=== PATIENT | male | born 1955 | race Caucasian/White ===

== ENCOUNTER 2017-09-26 16:54 | Inpatient (IN) | payer MEDICARE, OTHER ==
[2017-09-27] MEDS: SODIUM CHLORIDE 0.9% 1,000 ML IV SCH ×2 (00:04→19:21)
[2017-09-27 03:35] VITALS: BMI 22.3
[2017-09-27 07:16] LABS: Glucose,Whole Blood 129 mg/dL (75-99)
[2017-09-27 07:37] LABS: Basophils % (A) 0 %; Eosinophils % (A) 0 %; HCT 42.2 % (39.0-53.0); HGB 13.2 gm/dL (13.0-17.5); Lymphocytes # (A) 1.3 k/uL (1.0-4.8); Lymphocytes % (A) 15 %; MCH 27.9 pg (25.0-35.0); MCHC 31.2 g/dL (31.0-37.0); MCV 89.4 fL (80.0-100.0); Mean Platelet Volume 8.5; Monocytes # (A) 0.4 k/uL (0-1.0); Monocytes % (A) 5 %; Neutrophils # (A) 6.6 k/uL (1.3-7.7); Neutrophils % (A) 78 %; Platelet Count 188 k/uL (150-450); RBC 4.72 m/uL (4.30-5.90); RDW 14.8 % (11.5-15.5); WBC 8.5 k/uL (3.8-10.6)
[2017-09-27] MEDS: INSULIN ASPART 100 UNIT/ML 1 ML 10 ML VIAL SQ SCH ×4 (07:59→21:36)
[2017-09-27 08:01] LABS: Anion Gap 13 mmol/L; Blood Urea Nitrogen 39 mg/dL (9-20); Calcium 9.5 mg/dL (8.4-10.2); Carbon Dioxide 26 mmol/L (22-30); Chloride 117 mmol/L (98-107); Glucose 95 mg/dL (74-99); Potassium 4.2 mmol/L (3.5-5.1); Sodium 156 mmol/L (137-145)
[2017-09-27] MEDS: TAMSULOSIN 0.4 MG CAP.ER.24H PO SCH ×2 (08:15→21:26)
[2017-09-27] MEDS: ACETAMINOPHEN TAB 500 MG TAB PO PRN (08:15)
[2017-09-27] MEDS: FINASTERIDE 5 MG TAB PO SCH (08:16)
[2017-09-27] MEDS: amLODIPine 5 MG TAB PO SCH (08:16)
[2017-09-27] MEDS: HALOPERIDOL 5 MG TAB PO SCH ×2 (08:16→17:15)
[2017-09-27] MEDS: DIVALPROEX SPRINKLE 125 MG CAP.SPRINK PO SCH ×4 (08:16→22:46)
[2017-09-27] MEDS: GABAPENTIN 100 MG CAP PO SCH ×3 (08:16→21:25)
[2017-09-27] MEDS: FAMOTIDINE 20 MG TAB PO SCH ×2 (08:16→21:25)
[2017-09-27] MEDS: ASPIRIN 81 MG PO SCH (08:17)
[2017-09-27] MEDS ORDERED: cefTRIAXone IN SWFI 1,000 MG/10 ML SYRINGE IVP SCH (09:00)
[2017-09-27] MEDS ORDERED: LORazepam 1 MG TAB PO SCH (09:00)
[2017-09-27] MEDS ORDERED: OLANZapine 10 MG TAB PO SCH (09:00)
[2017-09-27] MEDS ORDERED: SODIUM CHLORIDE 0.45% 1,000 ML IV SCH (09:45)
--- NOTE | 2017-09-27 11:38 | P.HPIM ---
History of Present Illness Patient is a 61-year-old gentleman was transferred from [facility] after he was diagnosed with sepsis and was told patient has urinary tract infection although urine is not impressive for urinary tract infection source of infection is unknown and patient does have fever and no leukocytosis here appears to have had leukocytosis at [facility]. Patient is mentally disabled and is on chronic does everything he lives at a [facility], it appears to have Parkinson's and resting Parkinsonian tremor and patient appears to have some psychiatric issues because of which is because of which patient is on multiple antipsychotic medications which can actually cause except for withdrawal side effects and patient appears her dementia. Didn't provide me any history chest x-ray abdominal x-ray abdominal CAT scan no significant abnormality was appreciated. There is no skin breakdown source of infection is unknown. Review of Systems Unable to evaluate because of his clinical condition. Past Medical History Past Medical History: Coronary Artery Disease (CAD), Dementia, Hyperlipidemia, Hypertension, Renal Disease, Sleep Apnea/CPAP/BIPAP Additional Past Medical History / Comment(s): Parkinsons,BPH,Bipolar,Hernia History of Any Multi-Drug Resistant Organisms: None Reported Additional Past Surgical History / Comment(s): Right/Left Cataract surgery Past Anesthesia/Blood Transfusion Reactions: No Reported Reaction Past Psychological History: Anxiety, Bipolar, Panic Disorder Smoking Status: Former smoker Past Alcohol Use History: None Reported Past Drug Use History: None Reported - Past Family History Sister(s) Family Medical History: No Reported History Medications and Allergies Home Medications Medication Instructions Recorded Confirmed Type Ergocalciferol [Vitamin D2 50,000 unit PO Q7D 10/13/15 09/26/17 History (DRISDOL)] Isosorbide Mononitrate ER [Imdur] 30 mg PO DAILY@0900 10/13/15 09/26/17 History OLANZapine [ZyPREXA Zydis] 20 mg PO HS@209910/13/15 09/26/17 History Ranitidine HCl [Zantac] 150 mg PO BID@899,209910/13/15 09/26/17 History Tamsulosin HCl [Flomax] 0.4 mg PO BID@0900,209910/13/15 09/26/17 History Acetaminophen Tab [Tylenol Tab] 500 mg PO Q4H PRN 09/26/17 09/26/17 History Aspirin [Adult Low Dose Aspirin EC] 81 mg PO Q48H 09/26/17 09/26/17 History Ativan Solution 2mg/Ml 1 mg IM ONCE 09/26/17 09/26/17 History Bisacodyl [Dulcolax] 5 mg PO DAILY PRN 09/26/17 09/26/17 History Bisacodyl [Dulcolax] 10 mg RECTAL Q48H PRN 09/26/17 09/26/17 History Divalproex Sprinkle [Depakote 250 mg PO QID@09,13,17,09/26/17 09/26/17 History Sprinkle] Finasteride [Proscar] 5 mg PO DAILY@0900 09/26/17 09/26/17 History Gabapentin [Neurontin] 100 mg PO TID@0900,1300,2100 09/26/17 09/26/17 History Haloperidol [Haldol] 5 mg PO TID@0900,1700,2100 09/26/17 09/26/17 History House Supplement 120 ml PO BID@0900,1700 09/26/17 09/26/17 History LORazepam [Ativan] 1 mg PO TID@0900,1700,2100 09/26/17 09/26/17 History Loperamide [Imodium] 2 mg PO Q4H PRN 09/26/17 09/26/17 History OLANZapine [ZyPREXA] 10 mg PO DAILY@0900 09/26/17 09/26/17 History amLODIPine [Norvasc] 5 mg PO DAILY@0900 09/26/17 09/26/17 History clomiPRAMINE HCL 75 mg PO DAILY@2100 09/26/17 09/26/17 History Allergies Allergy/AdvReac Type Severity Reaction Status Date / Time No Known Allergies Allergy Verified 09/26/17 21:30 Physical Exam Vitals: Vital Signs Temp Pulse Resp BP Pulse Ox 09/27/17 10:19 145/88 09/27/17 08:00 101 H 18 09/27/17 07:00 101.3 F H 101 H 18 93 L 09/27/17 01:36 100.1 F H 94 17 160/95 98 09/27/17 01:21 99.9 F H 09/27/17 00:00 17 Intake and Output 0109/27/17 09/27/17 22:59 06:59 14:59 Intake Total 800 Balance 800 Intake: Intake, IV Titration 800 Amount Sodium Chloride 0.9% 1, 800 000 ml @ 100 mls/hr IV . Q10H [facility] Rx#:[id number] Other: Voiding Method Diaper Incontinent # Voids 2 1 Weight 70.579 kg PHYSICAL EXAMINATION: GENERAL: The patient is alert to assess his orientation patient has resting tremor HEENT: Pupils are round and equally reacting to light. EOMI. No scleral icterus. No conjunctival pallor. Normocephalic, atraumatic. No pharyngeal erythema. No thyromegaly. CARDIOVASCULAR: S1 and S2 present. No murmurs, rubs, or gallops. PULMONARY: Chest is clear to auscultation, no wheezing or crackles. ABDOMEN: Soft, nontender, nondistended, normoactive bowel sounds. No palpable organomegaly. MUSCULOSKELETAL: No joint swelling or deformity. EXTREMITIES: No cyanosis, clubbing, or pedal edema. NEUROLOGICAL: Unable to evaluate but patient does have resting tremor does not have any contractures does have atrophy of muscles of all the extremities patient is thin built L leg does not appear to have any new focal deficits SKIN: No rashes. Results CBC & Chem 7: 09/27/17 07:10 09/27/17 07:10 Labs: Abnormal Lab Results - Last 24 Hours (Table) 09/27/17 09/27/17 Range/Units 07:01 07:10 Sodium 156 H (137-145) mmol/L Chloride 117 H (98-107) mmol/L BUN 39 H (9-20) mg/dL Creatinine 1.36 H (0.66-1.25) mg/dL POC Glucose (mg/dL) 129 H (75-99) mg/dL Thrombosis Risk Factor Assmnt - Choose All That Apply Any of the Below Risk Factors Present?: No Other Risk Factors: Yes Each Risk Factor Represents 2 Points: Age 61-74 years Thrombosis Risk Factor Assessment Total Risk Factor Score: 2 Thrombosis Risk Factor Assessment Level: Low Risk Assessment and Plan Plan: -Sepsis source of infection is unknown: We will obtain influenza A and B testing and blood cultures urine cultures will be obtained will repeat the chest x-ray patient will be started on broad-spectrum antibiotics and infectious disease will be consulted. -Acute kidney injury: Probably lipidemia secondary to sepsis patient will be on IV fluids patient is hyponatremic because of which patient will need D5 water. -Chronic kidney disease stage II next and-possibility of Parkinson's unsure whether it's medication related or primary Parkinsonian disorder. Patient does have parkinsonian dementia. -Schizophrenia patient is on multiple medications that can cause except for side effects because of which I'm consulting psychiatrically 3 regarding their opinion about antipsychotic medications patient is on -Hyponatremia: Secondary to intravascular depletion dehydration. -Hyperlipidemia -Gastroesophageal reflux disease.
[2017-09-27 11:58] LABS: Glucose,Whole Blood 95 mg/dL (75-99)
[2017-09-27] MEDS: DEXTROSE 5%-0.2% NACL 1,000 ML IV SCH (13:36)
[2017-09-27 14:40] LABS: Hemoglobin A1C 5.5 % (4.0-6.0)
[2017-09-27 15:11] LABS: Amorphous Sediment,Urine Occasional /hpf; Appearance,Urine Cloudy (Clear); Bilirubin,Urine Negative (Negative); Blood,Urine Moderate (Negative); Color,Urine Yellow; Glucose,Urine (UA) Negative (Negative); Ketones,Urine Trace (Negative); Leukocyte Esterase,Urine Negative (Negative); Mucus,Urine Rare /hpf; Nitrite,Urine Negative (Negative); Protein,Urine 1+ (Negative); RBC,Urine 2 /hpf (0-5); Specific Gravity,Urine 1.011 (1.001-1.035); Squamous Epithelial Cell,Urine <1 /hpf (0-4); Urobilinogen,Urine <2.0 mg/dL (<2.0); WBC,Urine 2 /hpf (0-5)
[2017-09-27] MEDS: PIPERACILLIN-TAZOBACTAM 3.375 GM in DEXTROSE/WATER 1 50ML.BAG IVPB SCH (15:48)
--- NOTE | 2017-09-27 16:50 | CONS ---
CONSULTATION DATE OF SERVICE: 09/27/2017 REASON FOR CONSULTATION: Fever. HISTORY OF PRESENT ILLNESS: The patient is a 61-year-old male who has been transferred from [facility] after apparent diagnosis of possible sepsis. Apparently the patient presented to that facility with a fever and a question of possible urinary tract infection. Subsequently the patient was transferred to our facility for further evaluation of the same. The patient did have a fever of 99.9 this morning and 101.3 subsequently. The patient has been breathing comfortably say no when asked specifically for any chest pain or cough. No nausea, no vomiting or any abdominal pain, diarrhea; however, the patient himself is not a very good historian, so most of the information has been obtained from review of the chart back and talking to the nursing staff. REVIEW OF SYSTEMS: Review of systems could not be reliably obtained. The positive points have been mentioned in HPI. PAST MEDICAL HISTORY: 1. Coronary artery disease. 2. Dementia. 3. Hypertension. 4. Hyperlipidemia. 5. Renal insufficiency. 6. Sleep apnea. 7. Parkinson disease. 8. BPH. 9. Bipolar disorder. 10.Anxiety. PAST SURGICAL HISTORY: Bilateral cataract surgery. SOCIAL HISTORY: Remote history of smoking. No drinking or drug use. FAMILY HISTORY: No pertinent findings noticed. ALLERGIES: NO KNOWN DRUG ALLERGIES. MEDICATIONS: Current medications include: 1. Tylenol. 2. Norvasc. 3. Aspirin. 4. Depakote. 5. Pepcid. 6. Proscar. 7. Neurontin. 8. Haldol. 9. NovoLog. 10.Imdur. 11.Zyprexa. 12.Piperacillin tazobactam. 13.Flomax. PHYSICAL EXAMINATION: Blood pressure is 145/88 with a pulse of 101, temperature 101.3. He is 93% on room air. General description is a middle-aged male lying in bed in no distress. No tachypnea or accessory muscle of respiration use. HEENT examination shows no pallor or scleral icterus. Oral mucosa is dry. No pharyngeal erythema or thrush NECK: Trachea is central. No thyromegaly. LUNGS: Unlabored breathing. Some coarse breath sounds in the bases. No wheeze. HEART: S1, S2. Regular rate and rhythm. No murmur ABDOMEN: Soft. No tenderness. No guarding or rigidity. No organomegaly EXTREMITIES: No edema of feet. SKIN EXAMINATION: No rash or mass palpable. Neurologically patient is awake, alert, oriented x1. Mood and affect normal. LABS: Hemoglobin 13.2, white count 8.5 with a BUN of 39, creatinine 1.36. UA has been negative. Influenza A and B have been negative. Not clear if the patient did have a chest x-ray at that facility. DIAGNOSTIC IMPRESSION AND PLAN: Patient with fever. Patient was noticed to have some coughing and choking while he was drinking water. The question of pneumonitis is not entirely excluded, as the patient has no other clinical focus of infection. His influenza A and B were negative. UA is not significantly positive. No significant finding on abdominal examination. PLAN: 1. Will repeat a chest x-ray, PA and lateral, in the a.m. 2. Will keep the patient on Zosyn while waiting for the blood cultures to be finalized and workup to be completed. 3. Depending upon clinical response and the culture, will adjust the medication further if needed. Thank you for this consultation. Will follow this patient along with you. MMFREDERICKL / IJN: [id number] / RODERICK
--- NOTE | 2017-09-27 17:12 | XR ---
EXAMINATION TYPE: XR chest 1V DATE OF EXAM: 09/27/2017 COMPARISON: NONE HISTORY: Chest pain, rule out pneumonia TECHNIQUE: Single frontal view of the chest is obtained. FINDINGS: There is pleural effusion or pneumothorax seen. The cardiac silhouette size is within nor mal limits, heart size appearance is accentuated by rotation. Patient is rotated. Patchy basilar dens ity is present. Right hemidiaphragm is elevated. Lung volumes are low. The osseous structures are in tact. IMPRESSION: Basilar atelectasis, expiratory rotated exam, follow-up PA and lateral chest x-ray sugge sted. Elevated right hemidiaphragm.
[2017-09-27 17:42] LABS: Glucose,Whole Blood 119 mg/dL (75-99)
[2017-09-27] MEDS ORDERED: diphenhydrAMINE 50 MG/ML 1 ML VIAL IM STA (18:50)
[2017-09-27 19:55] LABS: Glucose,Whole Blood 121 mg/dL (75-99)
[2017-09-27] MEDS ORDERED: OLANZapine ODT 10 MG TAB PO SCH (21:00)
[2017-09-27 21:01] VITALS: RESP 16
--- NOTE | 2017-09-27 23:20 | CONS ---
CONSULTATION DATE OF SERVICE: 09/27/2017 PURPOSE FOR CONSULTATION: Evaluate for mental status change and multiple psychotropic medications. HISTORY OF PRESENT ILLNESS: The patient is a 61-year-old male who was admitted due to sepsis with possible infection. The origin is unknown. He has fever and leukocytosis. Dr. Villalobos documented that the patient is "mentally disabled," lives in a jail, has parkinsonism and is on a number of psychiatric medications, including antipsychotic medications. He also has a possible diagnosis of dementia. Psychotropic medications that the patient has been on at admission includes Depakote Sprinkles 250 mg 3 times a day, Haldol 5 mg 3 times a day. Ativan 1 mg 3 times a day, Zyprexa 10 mg in the morning. Zyprexa Zydis 20 mg at bedtime and clomipramine 75 mg at bedtime. He is also on Neurontin 100 mg 3 times a day. On admission, he was not continued on the Ativan, though his other psychotropic medications were continued. When I talked to the nurse in the afternoon, she indicated that he is not able to have any meaningful conversation. He would just move his lips and make sounds, though nothing that was meaningful. He has had some restlessness. He was having trouble with eating. He was seen in consultation by Dr. Rodrigue Hooper MD, who noted possible pneumonitis, though ruled out other possible sources of fever. When I saw the patient, he was half sitting up in bed. His gaze was fixed down toward his waist. He held a cup of pudding in his hands. He was moving his hands about and it was noteworthy that the pudding was spilled over his blanket. When I asked questions or talked to him from different directions, he did not change his gaze. His eyes stayed nearly shut, the best that I could tell. His lips moved in a very rapid fluttering fashion. He had stiffness in head and neck and stiffness in his arm. It was difficult to elicit any cogwheel rigidity. During the physical exam, he again made no apparent effort to respond to my presence there in any way and held his head in a rigid fashion. ASSESSMENT: It was felt the patient was having an acute dystonic reaction. He was administered Benadryl 100 mg IM. A followup telephone contact with the nurse about an hour later indicated that he was resting quietly in the evening time. The nurse stated that he actually has started talking and was able to talk appropriately about his concerns. He had complaint that he was having trouble urinating. It is noted that the patient was on a high dose of Haldol, which is the most likely contributor to his acute dystonic reaction. Haldol has been discontinued. He is also on a high dose of Zyprexa, which is typically indicated for serious psychosis. While Zyprexa has a relatively low incidence of extrapyramidal side effects, in combination with Haldol, it may be a significant contributor. As such, Zyprexa was discontinued also. It is noted that the patient is on the clomipramine in a moderate dose of 75 mg a day. Clomipramine does have anticholinergic affects and may add some benefit in terms of dystonia. He has had a fever with temperatures up to 101.3 this morning at 7:00 in the morning. It is noted on lab work that his white blood cell count was 8.5 in the normal range with a normal CBC. I would raise concern that he could have been in the midst of developing a neuroleptic malignant syndrome with the hallmarks usually being elevated temperature and elevated WBC. At this point, I will just encourage nursing to keep up with fluids. He may need to be catheterized. He may have some urinary hesitancy from the neurologic issues and his medications. I will discontinue Depakote, as he is likely to have a low blood level. A CBC, metabolic panel, thyroid profile and Depakote level are to be drawn in the morning. I will also order a CPK which typically can elevate very quickly, generally into the 1000s, in the early phase of neuroleptic malignant syndrome. A lesser concern would be that there could be elements of an anticholinergic delirium, though it is not clear that he is on substantial medicines with anticholinergic effects. I indicated to the nurse to call with any problems or concerns. I will continue to follow. MMODL / IJN: [id number] /
[2017-09-28] MEDS: DEXTROSE 5%-0.2% NACL 1,000 ML IV SCH ×2 (00:01→12:13)
[2017-09-28] MEDS: PIPERACILLIN-TAZOBACTAM 3.375 GM in DEXTROSE/WATER 1 50ML.BAG IVPB SCH ×3 (00:02→16:15)
[2017-09-28 07:26] LABS: Glucose,Whole Blood 116 mg/dL (75-99)
[2017-09-28] MEDS: FAMOTIDINE 20 MG TAB PO SCH ×2 (07:31→20:44)
[2017-09-28] MEDS: ISOSORBIDE MONONITRATE ER 30 MG TAB.ER.24H PO SCH (07:31)
[2017-09-28] MEDS: TAMSULOSIN 0.4 MG CAP.ER.24H PO SCH ×2 (07:31→20:44)
[2017-09-28] MEDS: FINASTERIDE 5 MG TAB PO SCH (07:32)
[2017-09-28] MEDS: amLODIPine 5 MG TAB PO SCH (07:32)
[2017-09-28] MEDS: DIVALPROEX SPRINKLE 125 MG CAP.SPRINK PO SCH ×4 (07:32→20:44)
[2017-09-28] MEDS: INSULIN ASPART 100 UNIT/ML 1 ML 10 ML VIAL SQ SCH ×4 (07:32→20:45)
[2017-09-28] MEDS: GABAPENTIN 100 MG CAP PO SCH ×3 (07:32→20:44)
[2017-09-28 07:38] LABS: HCT 40.7 % (39.0-53.0); HGB 12.8 gm/dL (13.0-17.5); MCHC 31.3 g/dL (31.0-37.0); MCV 89.5 fL (80.0-100.0); Mean Platelet Volume 8.5; Platelet Count 195 k/uL (150-450); RBC 4.55 m/uL (4.30-5.90); RDW 14.7 % (11.5-15.5); WBC 6.4 k/uL (3.8-10.6)
[2017-09-28 08:00] LABS: Anion Gap 9 mmol/L; Blood Urea Nitrogen 27 mg/dL (9-20); Calcium 8.6 mg/dL (8.4-10.2); Carbon Dioxide 27 mmol/L (22-30); Chloride 106 mmol/L (98-107); Glucose 108 mg/dL (74-99); Potassium 3.3 mmol/L (3.5-5.1); Sodium 142 mmol/L (137-145)
[2017-09-28 08:17] LABS: T4, Free (Free Thyroxine) 1.02 ng/dL (0.78-2.19)
[2017-09-28 08:27] LABS: Creatine Kinase 5678 U/L (55-170)
[2017-09-28 11:21] LABS: Glucose,Whole Blood 103 mg/dL (75-99)
[2017-09-28] MEDS ORDERED: Potassium Replacement Protocol 1 EACH MISC MISCELLANE PRN (12:44)
--- NOTE | 2017-09-28 12:56 | P.PN ---
Subjective Patient was admitted yesterday with altered mental status and sepsis unknown source of infection patient was on is on broad-spectrum antibiotics A at this point of time source of infection is still not evident blood cultures are still pending so far negative urine cultures and blood cultures and influenza testing is negative. Patient although is more responsive able to give me answers. Constitutional: Denied any fatigue denied any fever. Cardio vascular: denied any chest pain, palpitations Gastrointestinal denied any nausea vomiting Pulmonary: Denied any shortness of breath cough Neurologic denied any new focal deficits Objective - Vital Signs Vital signs: Vital Signs Temp 97.7 F 09/28/17 10:15 Pulse 77 09/28/17 07:48 Resp 16 09/28/17 07:48 BP 119/78 09/28/17 07:00 Pulse Ox 95 09/28/17 07:00 Intake & Output 09/27/17 09/28/17 09/28/17 18:59 06:59 18:59 Intake Total 700 160 Output Total 400 650 100 Balance 300 -650 60 Intake: Intake, IV Titration 700 Amount Dextrose 5%-0.2% NaCl 1, 700 000 ml @ 100 mls/hr IV . Q10H [facility] Rx#:[id number] Oral 160 Output: Urine 400 650 100 Other: Voiding Method Diaper Diaper Diaper Incontinent Incontinent Incontinent # Voids 1 - Exam PHYSICAL EXAMINATION: GENERAL: She is alert oriented 3 able to give me answers appears to be bit fatigued HEENT: Pupils are round and equally reacting to light. EOMI. No scleral icterus. No conjunctival pallor. Normocephalic, atraumatic. No pharyngeal erythema. No thyromegaly. CARDIOVASCULAR: S1 and S2 present. No murmurs, rubs, or gallops. PULMONARY: Chest is clear to auscultation, no wheezing or crackles. ABDOMEN: Soft, nontender, nondistended, normoactive bowel sounds. No palpable organomegaly. MUSCULOSKELETAL: No joint swelling or deformity. EXTREMITIES: No cyanosis, clubbing, or pedal edema. NEUROLOGICAL: She does have atrophy of muscles in all the 4 extremities SKIN: No rashes. - Labs CBC & Chem 7: 09/28/17 07:00 09/28/17 07:00 Labs: Abnormal Lab Results - Last 24 Hours (Table) 09/27/17 09/27/17 09/27/17 Range/Units 14:50 17:34 19:36 Hgb (13.0-17.5) gm/dL Potassium (3.5-5.1) mmol/L BUN (9-20) mg/dL Glucose (74-99) mg/dL POC Glucose (mg/dL) 119 H 121 H (75-99) mg/dL Creatine Kinase (55-170) U/L Urine Protein 1+ H (Negative) Urine Ketones Trace H (Negative) Urine Blood Moderate H (Negative) Amorphous Sediment Occasional H (None) /hpf Urine Mucus Rare H (None) /hpf 09/28/17 09/28/17 09/28/17 Range/Units 07:00 07:00 07:24 Hgb 12.8 L (13.0-17.5) gm/dL Potassium 3.3 L (3.5-5.1) mmol/L BUN 27 H (9-20) mg/dL Glucose 108 H (74-99) mg/dL POC Glucose (mg/dL) 116 H (75-99) mg/dL Creatine Kinase 5678 H (55-170) U/L Urine Protein (Negative) Urine Ketones (Negative) Urine Blood (Negative) Amorphous Sediment (None) /hpf Urine Mucus (None) /hpf 09/28/17 Range/Units 11:19 Hgb (13.0-17.5) gm/dL Potassium (3.5-5.1) mmol/L BUN (9-20) mg/dL Glucose (74-99) mg/dL POC Glucose (mg/dL) 103 H (75-99) mg/dL Creatine Kinase (55-170) U/L Urine Protein (Negative) Urine Ketones (Negative) Urine Blood (Negative) Amorphous Sediment (None) /hpf Urine Mucus (None) /hpf Microbiology - Last 24 Hours (Table) 09/27/17 14:50 Urine Culture - Preliminary Urine,Voided Assessment and Plan Plan: -Sepsis source of infection is unknown: influenza A and B testing and blood cultures urine cultures will be obtained are all negative source of infection is still not. We will await blood cultures will continue with broad-spectrum antibiotics -Acute kidney injury: Definitely improved patient does have prerenal azotemia. Patient will be switched to D5 half-normal saline today -Chronic kidney disease stage II next and-possibility of Parkinson's unsure whether it's medication related or primary Parkinsonian disorder. Patient does have parkinsonian dementia. -Schizophrenia patient is on multiple medications: Psychiatric evaluated the patient and continue present regimen. -Hyponatremia: Secondary to severe intravascular depletion improved now. -Hyperlipidemia -Gastroesophageal reflux disease.
[2017-09-28] MEDS: POTASSIUM CHLORIDE 10 MEQ in WATER FOR INJECTION 1 100ML.BAG IVPB SCH ×2 (13:28→13:34)
[2017-09-28] MEDS: DEXTROSE 5%-0.45% NACL 1,000 ML IV SCH (15:30)
[2017-09-28 17:13] LABS: Glucose,Whole Blood 108 mg/dL (75-99)
[2017-09-28 20:24] LABS: Glucose,Whole Blood 134 mg/dL (75-99)
--- NOTE | 2017-09-28 23:06 | CONS ---
CONSULTATION DATE OF CONSULTATION: 09/28/2017 PURPOSE FOR CONSULTATION: Evaluate for mental status change and multiple psychotropic medications. RECENT HISTORY: The patient has been doing fairly well. It is noted that he appeared to be having an acute dystonic reaction and that also there were risks for the patient developing neuroleptic malignant syndrome. He was on a high dose of both Haldol and Zyprexa, given his age and other mental health issues. He was unable to communicate when I saw him and he was not able to respond in any manner. He had rigidity in his muscles. The Haldol and Zyprexa were stopped and he was given Benadryl 100 mg IM. He showed gives a very good response to the anticholinergic medication. Within hours, he was much calmer. His muscles were relaxed. He was able to communicate. He was fairly oriented and aware of his situation. Today, he continues to improve. When I saw him, he could tell me that it was Saturday, September 28 or . He noted that his birthday was coming up in about 5 days. He still had some tremor noted in his lower jaw. Otherwise, he was doing quite well. At this point I would just continue his psychotropic medications the same. It is reasonable for him to continue Anafranil 75 mg at bedtime. Anafranil does have anticholinergic effects and can also help reduce any extrapyramidal side effects from Haldol and to a lesser extent Zyprexa. I discussed with the nurse that he may continue to have some issues of EPS over a number of weeks, though I would anticipate gradual progressive decline. He has made good progress at this point. I will continue to follow. MMODL / IJN: [id number] /
[2017-09-29] MEDS: PIPERACILLIN-TAZOBACTAM 3.375 GM in DEXTROSE/WATER 1 50ML.BAG IVPB SCH ×4 (00:21→22:58)
[2017-09-29] MEDS: DEXTROSE 5%-0.45% NACL 1,000 ML IV SCH ×3 (03:13→21:09)
[2017-09-29 07:15] LABS: Glucose,Whole Blood 101 mg/dL (75-99)
[2017-09-29] MEDS: INSULIN ASPART 100 UNIT/ML 1 ML 10 ML VIAL SQ SCH ×4 (07:15→20:25)
[2017-09-29 07:22] LABS: HCT 38.2 % (39.0-53.0); HGB 12.2 gm/dL (13.0-17.5); MCH 28.8 pg (25.0-35.0); MCHC 31.9 g/dL (31.0-37.0); MCV 90.1 fL (80.0-100.0); Mean Platelet Volume 8.8; Platelet Count 181 k/uL (150-450); RBC 4.24 m/uL (4.30-5.90); RDW 14.5 % (11.5-15.5); WBC 5.2 k/uL (3.8-10.6)
[2017-09-29 07:38] LABS: Anion Gap 8 mmol/L; Blood Urea Nitrogen 25 mg/dL (9-20); Calcium 8.6 mg/dL (8.4-10.2); Carbon Dioxide 24 mmol/L (22-30); Chloride 111 mmol/L (98-107); Glucose 103 mg/dL (74-99); Potassium 3.6 mmol/L (3.5-5.1); Sodium 143 mmol/L (137-145)
[2017-09-29] MEDS: amLODIPine 5 MG TAB PO SCH (08:32)
[2017-09-29] MEDS: ASPIRIN 81 MG PO SCH (08:32)
[2017-09-29] MEDS: DIVALPROEX SPRINKLE 125 MG CAP.SPRINK PO SCH ×4 (08:32→20:27)
[2017-09-29] MEDS: FAMOTIDINE 20 MG TAB PO SCH ×2 (08:33→20:27)
[2017-09-29] MEDS: TAMSULOSIN 0.4 MG CAP.ER.24H PO SCH ×2 (08:33→20:27)
[2017-09-29] MEDS: FINASTERIDE 5 MG TAB PO SCH (08:34)
[2017-09-29] MEDS: ISOSORBIDE MONONITRATE ER 30 MG TAB.ER.24H PO SCH (08:34)
[2017-09-29] MEDS: GABAPENTIN 100 MG CAP PO SCH ×3 (08:34→20:27)
[2017-09-29 11:59] LABS: Glucose,Whole Blood 107 mg/dL (75-99)
--- NOTE | 2017-09-29 11:59 | P.PN ---
Subjective Patient was admitted yesterday with altered mental status and sepsis unknown source of infection patient was on is on broad-spectrum antibiotics A at this point of time source of infection is still not evident blood cultures are still pending so far negative urine cultures and blood cultures and influenza testing is negative. Patient although is more responsive able to give me answers. 09/29/2017 Patient is doing significantly better is complaining of urination problems because of which will obtain a bladder scan and patient is requesting to go to shelter will get physical therapy evaluation and they get their opinion regarding that patient is quite weak probably not appropriate for shelter. Constitutional: Denied any fatigue denied any fever. Cardio vascular: denied any chest pain, palpitations Gastrointestinal denied any nausea vomiting Pulmonary: Denied any shortness of breath cough Neurologic denied any new focal deficits Objective - Vital Signs Vital signs: Vital Signs Temp 97.9 F 09/29/17 07:00 Pulse 85 09/29/17 08:00 Resp 16 09/29/17 08:00 BP 130/83 09/29/17 07:00 Pulse Ox 95 09/29/17 07:00 Intake & Output 09/28/17 09/29/17 09/29/17 18:59 06:59 18:59 Intake Total 160 240 Output Total 100 100 Balance 60 140 Weight 70.579 kg Intake: Oral 160 240 Output: Urine 100 100 Other: Voiding Method Diaper Toilet Toilet Incontinent Urinal Urinal # Voids 2 2 - Exam PHYSICAL EXAMINATION: GENERAL: She is alert oriented 3 able to give me answers appears to be bit fatigued HEENT: Pupils are round and equally reacting to light. EOMI. No scleral icterus. No conjunctival pallor. Normocephalic, atraumatic. No pharyngeal erythema. No thyromegaly. CARDIOVASCULAR: S1 and S2 present. No murmurs, rubs, or gallops. PULMONARY: Chest is clear to auscultation, no wheezing or crackles. ABDOMEN: Soft, nontender, nondistended, normoactive bowel sounds. No palpable organomegaly. MUSCULOSKELETAL: No joint swelling or deformity. EXTREMITIES: No cyanosis, clubbing, or pedal edema. NEUROLOGICAL: She does have atrophy of muscles in all the 4 extremities SKIN: No rashes. - Labs CBC & Chem 7: 09/29/17 06:28 09/29/17 06:28 Labs: Abnormal Lab Results - Last 24 Hours (Table) 09/28/17 09/28/17 09/29/17 Range/Units 17:10 20:22 06:28 RBC 4.24 L (4.30-5.90) m/uL Hgb 12.2 L (13.0-17.5) gm/dL Hct 38.2 L (39.0-53.0) % Chloride (98-107) mmol/L BUN (9-20) mg/dL Glucose (74-99) mg/dL POC Glucose (mg/dL) 108 H 134 H (75-99) mg/dL 09/29/17 09/29/17 Range/Units 06:28 07:13 RBC (4.30-5.90) m/uL Hgb (13.0-17.5) gm/dL Hct (39.0-53.0) % Chloride 111 H (98-107) mmol/L BUN 25 H (9-20) mg/dL Glucose 103 H (74-99) mg/dL POC Glucose (mg/dL) 101 H (75-99) mg/dL Microbiology - Last 24 Hours (Table) 09/27/17 14:50 Urine Culture - Final Urine,Voided 09/27/17 12:09 Blood Culture - Preliminary Blood No Growth after 24 hours Assessment and Plan Plan: -Sepsis source of infection is unknown: influenza A and B testing and blood cultures urine cultures will be obtained are all negative source of infection is still not. We will await blood cultures will continue with broad-spectrum antibiotics, all the workup for bacterial infections is negative -Acute kidney injury: Definitely improved patient does have prerenal azotemia. Continue with D5 half-normal saline -Chronic kidney disease stage II next and-possibility of Parkinson's unsure whether it's medication related or primary Parkinsonian disorder. Patient does have parkinsonian dementia. -Schizophrenia patient is on multiple medications: Psychiatric evaluated the patient and continue present regimen. -Hyponatremia: Secondary to severe intravascular depletion improved now. -Hyperlipidemia -Gastroesophageal reflux disease.
[2017-09-29] MEDS: ACETAMINOPHEN TAB 500 MG TAB PO PRN ×2 (12:40→21:09)
--- NOTE | 2017-09-29 17:13 | CONS ---
CONSULTATION PSYCHIATRIC CONSULTATION: DATE OF SERVICE: 09/29/2017. PURPOSE FOR CONSULTATION: Evaluate for mental status change and multiple psychotropic medications. RECENT HISTORY: Patient has been doing well. He had a quiet evening last night. He slept well today. He has been awake and alert. He is fully oriented. He has a good mood. He is looking forward to discharge. When I saw him today he gave me good eye contact. He smiled. He answered questions appropriately. He was calm. He was indicating much better outlook. ASSESSMENT: I will continue the current diagnosis and treatment plan. The primary issue for the patient appears to have been acute dystonic reaction secondary to high dose Haldol complicated by high dose Zyprexa. He is not on any antipsychotics at present. He is showing less tremor and few other muscle issues. He will continue on Anafranil, which due to its anticholinergic effects may help quiet some of the EPS. As noted yesterday he could continue to have some degree of EPS symptoms for several weeks, though I would anticipate a gradual decline as we are seeing. JEAN PIERRE / SORAYAN: [id number] /
[2017-09-29 17:31] LABS: Glucose,Whole Blood 120 mg/dL (75-99)
[2017-09-29 20:14] LABS: Glucose,Whole Blood 121 mg/dL (75-99)
[2017-09-29 22:05] VITALS: TEMP 98.4
[2017-09-30] MEDS: ACETAMINOPHEN TAB 500 MG TAB PO PRN (04:59)
--- NOTE | 2017-09-30 05:28 | PN ---
PROGRESS NOTE DATE OF SERVICE: 09/29/2017 REASON FOR FOLLOWUP: Fever, likely pneumonia. INTERVAL HISTORY: The patient is afebrile, has been feeling better. Breathing comfortably. Cough has decreased in intensity. Denies having any chest pain. No abdominal pain and no diarrhea. PHYSICAL EXAMINATION: On examination, blood pressure 129/83, pulse of 78, temperature 98.4. He is 97 % on room air. General description is a middle aged male up in the chair in no distress. RESPIRATORY SYSTEM: Unlabored breathing with decreased breath sounds in the bases. No wheeze. HEART: S1, S2. Regular rate and rhythm. ABDOMEN: Soft, no tenderness. LABS: Hemoglobin 12.2, white count 5.2, BUN of 25, creatinine 1.06. DIAGNOSTIC IMPRESSION AND PLAN: Patient with fever, source is likely pneumonia, question of possible aspiration. Overall responding to the Zosyn. Will get a chest x-ray, PA and lateral tomorrow. Keep the patient on Zosyn. If continued to improve, the patient will finish therapy with oral antibiotics. Continue supportive care. MMODL / IJN: [id number] / MTDD
[2017-09-30] MEDS: INSULIN ASPART 100 UNIT/ML 1 ML 10 ML VIAL SQ SCH ×2 (07:35→12:19)
[2017-09-30] MEDS: ISOSORBIDE MONONITRATE ER 30 MG TAB.ER.24H PO SCH (07:37)
[2017-09-30] MEDS: TAMSULOSIN 0.4 MG CAP.ER.24H PO SCH (07:37)
[2017-09-30] MEDS: FAMOTIDINE 20 MG TAB PO SCH (07:37)
[2017-09-30] MEDS: amLODIPine 5 MG TAB PO SCH (07:37)
[2017-09-30] MEDS: PIPERACILLIN-TAZOBACTAM 3.375 GM in DEXTROSE/WATER 1 50ML.BAG IVPB SCH (07:37)
[2017-09-30] MEDS: FINASTERIDE 5 MG TAB PO SCH (07:37)
[2017-09-30] MEDS: DIVALPROEX SPRINKLE 125 MG CAP.SPRINK PO SCH ×2 (07:37→12:30)
[2017-09-30] MEDS: GABAPENTIN 100 MG CAP PO SCH ×2 (07:37→12:30)
[2017-09-30] MEDS: DEXTROSE 5%-0.45% NACL 1,000 ML IV SCH (07:38)
[2017-09-30 08:10] LABS: Glucose,Whole Blood 83 mg/dL (75-99)
[2017-09-30 08:23] LABS: HCT 37.3 % (39.0-53.0); HGB 11.7 gm/dL (13.0-17.5); MCH 28.7 pg (25.0-35.0); MCHC 31.5 g/dL (31.0-37.0); Mean Platelet Volume 7.9; Platelet Count 197 k/uL (150-450); RDW 13.5 % (11.5-15.5); WBC 4.5 k/uL (3.8-10.6)
[2017-09-30 08:38] VITALS: BP 133/90; PULSE 85
[2017-09-30 09:00] LABS: Anion Gap 8 mmol/L; Blood Urea Nitrogen 20 mg/dL (9-20); Calcium 8.5 mg/dL (8.4-10.2); Carbon Dioxide 29 mmol/L (22-30); Chloride 108 mmol/L (98-107); Glucose 86 mg/dL (74-99); Sodium 145 mmol/L (137-145)
[2017-09-30 09:04] LABS: Potassium 3.8 mmol/L (3.5-5.1)
[2017-09-30 11:58] LABS: Glucose,Whole Blood 119 mg/dL (75-99)
--- NOTE | 2017-09-30 11:59 | PN ---
PROGRESS NOTE DATE OF SERVICE: 09/30/2017. REASON FOR FOLLOWUP: Fever, likely pneumonia. INTERVAL HISTORY: The patient is afebrile, has been breathing comfortably, very mild cough not bringing up any sputum. No chest pain no abdominal pain. No nausea, vomiting, or any diarrhea. EXAMINATION: Blood pressure 133/90 with a pulse of 85, temperature of 98.4. He is 97% on room air. GENERAL DESCRIPTION: A middle aged male up in the chair in no distress. RESPIRATORY: Unlabored breathing with decreased breath sounds in the bases. HEART: S1, S2. Regular rate and rhythm. ABDOMEN: Soft, no tenderness. LABS: Hemoglobin 11.7, white count 4.5 BUN of 20, creatinine 1.08. Blood culture negative. Urine is negative. Chest x-ray ordered for this morning, not done. DIAGNOSTIC IMPRESSION AND PLAN: Patient admitted to the hospital with a fever, concern for possible pneumonia or aspiration pneumonitis. Will wait with repeat x-ray this morning. Depending if it is clear, no antibiotic, however, if shows some infiltrate, may give short course of oral Augmentin for about a week. Continue supportive care. MMODL / IJN: [id number] /
--- NOTE | 2017-09-30 12:37 | P.DS ---
Providers Date of admission: 09/26/17 19:45 Attending physician: Ifeanyi Villalobos Consults: 09/27/17 11:22 Consult Physician Routine Consulting Provider: Rodrigue Hooper Consult Reason/Comments: Sepsis, unknown source of infection Do you want consulting provider notified?: Yes 09/27/17 15:49 Consult Physician Routine Consulting Provider: Paul Rodriguez Consult Reason/Comments: AMS Do you want consulting provider notified?: Yes Primary care physician: Stated None Hospital Course: Patient was admitted yesterday with altered mental status and sepsis unknown source of infection patient was on is on broad-spectrum antibiotics A at this point of time source of infection is still not evident blood cultures are still pending so far negative urine cultures and blood cultures and influenza testing is negative. Patient although is more responsive able to give me answers. 09/29/2017 Patient is doing significantly better is complaining of urination problems because of which will obtain a bladder scan and patient is requesting to go to [facility] will get physical therapy evaluation and they get their opinion regarding that patient is quite weak probably not appropriate for [facility]. 09/30/2017 Patient has significant clinical improvement patient's Haldol and Ativan were discontinued because of extrapyramidal side effects, infectious disease believes patient has aspiration pneumonia which led to his sepsis as of which we are discharging him on Augmentin. PHYSICAL EXAMINATION: GENERAL: She is alert oriented 3 able to give me answers appears to be bit fatigued HEENT: Pupils are round and equally reacting to light. EOMI. No scleral icterus. No conjunctival pallor. Normocephalic, atraumatic. No pharyngeal erythema. No thyromegaly. CARDIOVASCULAR: S1 and S2 present. No murmurs, rubs, or gallops. PULMONARY: Chest is clear to auscultation, no wheezing or crackles. ABDOMEN: Soft, nontender, nondistended, normoactive bowel sounds. No palpable organomegaly. MUSCULOSKELETAL: No joint swelling or deformity. EXTREMITIES: No cyanosis, clubbing, or pedal edema. NEUROLOGICAL: She does have atrophy of muscles in all the 4 extremities SKIN: No rashes. Assessment and Plan Plan: -Sepsis and possibly secondary to aspiration pneumonia patient will be discharged on Augmentin -Acute kidney injury: Definitely improved patient does have prerenal azotemia. Improved now -Chronic kidney disease stage II -Schizophrenia patient is on multiple medications: Psychiatric evaluated the patient -Hyponatremia: Secondary to severe intravascular depletion improved now. -Hyperlipidemia -Gastroesophageal reflux disease. Plan - Discharge Summary New Discharge Prescriptions: New Amoxic-Pot Clav 875-125Mg [Augmentin 875-125] 1 tab PO Q12HR #14 tablet Continue Ergocalciferol [Vitamin D2 (DRISDOL)] 50,000 unit PO Q7D Isosorbide Mononitrate ER [Imdur] 30 mg PO DAILY@0900 OLANZapine [ZyPREXA Zydis] 20 mg PO HS@2100 Ranitidine HCl [Zantac] 150 mg PO BID@0900,2100 Tamsulosin HCl [Flomax] 0.4 mg PO BID@0900,2100 Acetaminophen Tab [Tylenol] 500 mg PO Q4H PRN PRN Reason: Mild Pain amLODIPine [Norvasc] 5 mg PO DAILY@0900 Aspirin [Adult Low Dose Aspirin EC] 81 mg PO Q48H clomiPRAMINE HCL 75 mg PO DAILY@2100 Divalproex Sprinkle [Depakote Sprinkle] 250 mg PO QID@09,,17,21 Finasteride [Proscar] 5 mg PO DAILY@0900 Gabapentin [Neurontin] 100 mg PO TID@0900,1300,2100 House Supplement 120 ml PO BID@0900,1700 LORazepam [Ativan] 1 mg PO TID@0900,1700,2100 OLANZapine [ZyPREXA] 10 mg PO DAILY@0900 Loperamide [Imodium] 2 mg PO Q4H PRN PRN Reason: Diarrhea Bisacodyl [Dulcolax] 5 mg PO DAILY PRN PRN Reason: Constipation Bisacodyl [Dulcolax] 10 mg RECTAL Q48H PRN PRN Reason: Constipation Octreotide Lar [SandoSTATIN LAR] 30 mg IM QMONTH Discontinued Ativan Solution 2mg/Ml 1 mg IM ONCE Haloperidol [Haldol] 5 mg PO TID@0900,1700,2100 Discharge Medication List Ergocalciferol [Vitamin D2 (DRISDOL)] 50,000 unit PO Q7D 10/13/15 [History] Isosorbide Mononitrate ER [Imdur] 30 mg PO DAILY@0900 10/13/15 [History] OLANZapine [ZyPREXA Zydis] 20 mg PO HS@209910/13/15 [History] Ranitidine HCl [Zantac] 150 mg PO BID@0900,209910/13/15 [History] Tamsulosin HCl [Flomax] 0.4 mg PO BID@0900,209910/13/15 [History] Acetaminophen Tab [Tylenol] 500 mg PO Q4H PRN 09/26/17 [History] Aspirin [Adult Low Dose Aspirin EC] 81 mg PO Q48H 09/26/17 [History] Bisacodyl [Dulcolax] 5 mg PO DAILY PRN 09/26/17 [History] Bisacodyl [Dulcolax] 10 mg RECTAL Q48H PRN 09/26/17 [History] Divalproex Sprinkle [Depakote Sprinkle] 250 mg PO QID@09,13,17,09/26/17 [ History] Finasteride [Proscar] 5 mg PO DAILY@0909/26/17 [History] Gabapentin [Neurontin] 100 mg PO TID@0900,1300,209909/26/17 [History] House Supplement 120 ml PO BID@0900,1700 09/26/17 [History] LORazepam [Ativan] 1 mg PO TID@0900,1700,209909/26/17 [History] Loperamide [Imodium] 2 mg PO Q4H PRN 09/26/17 [History] OLANZapine [ZyPREXA] 10 mg PO DAILY@0909/26/17 [History] amLODIPine [Norvasc] 5 mg PO DAILY@0909/26/17 [History] clomiPRAMINE HCL 75 mg PO DAILY@209909/26/17 [History] Octreotide Lar [SandoSTATIN LAR] 30 mg IM QMONTH 09/28/17 [History] Amoxic-Pot Clav 875-125Mg [Augmentin 875-125] 1 tab PO Q12HR #14 tablet [Rx] Patient Instructions/Handouts: Amoxicillin/Clavulanate Potassium (By mouth), Urinary Tract Infection in Men (DC), Hypernatremia (DC) Discharge Disposition: OTHER INSTITUTION NOT DEFINED
--- NOTE | 2017-09-30 12:43 | CDI ---
Last Revision, August 2017 Documentation Clarification Form Date: 09/30/2017 12:18:00 PM From: Alexus Dean RN Admit Date: 09/26/2017 7:45:00 PM Patient Name: Meir Barboza Visit Number: [id number] ATTENTION: The Clinical Documentation Specialists (CDI) and [facility] Coding Staff appreciate your assistance in clarifying documentation. Please respond to the clarification below the line at the bottom and electronically sign. The CDI & [facility] Coding staff will review the response and follow-up if needed. Please note: Queries are made part of the Legal Health Record. If you have any questions, please contact the author of this message via ITS. Dr. Ifeanyi Villalobos, Documentation found on 09/28 that states "Patient was admitted yesterday with altered mental status and sepsis". History/Risk factors: CAD, dementia, hyperlipidemia, HTN, CKD stage 3, sleep apnea, Parkinson's, mental disabled sepsis, source of infection unknown, ANTHONY multiple antipsychotic drugs Clinical Indicators: Labs: on admission: sod. 156, chloride 116, bun 39, cr 1.36 Treatment: Consults: Dr. Hooper, Dr. Rodriguez In your professional opinion, can you please clarify the cause of the altered mental status, if known? Metabolic Encephalopathy Toxic Encephalopathy Causal Condition: other disease process? Other, please specify Unable to determine Please continue to document in your progress notes and discharge summary in order to capture severity of illness and risk of mortality. Include clinical findings that support your diagnosis. Toxic Encephalopathy MTDD
--- NOTE | 2017-09-30 16:05 | XR ---
EXAMINATION TYPE: XR chest 2V DATE OF EXAM: 09/30/2017 COMPARISON: 09/27/2017 HISTORY: Shortness of breath TECHNIQUE: Frontal and lateral views of the chest are obtained. FINDINGS: Scattered senescent parenchymal changes noted. Hyperinflation compatible with COPD. Strandy basilar densities may reflect linear atelectasis however underlying infiltrates are not exclu ded. Heart size is stable. Mediastinal structures are stable and grossly unremarkable. No evidence for hilar prominence. Degenerative changes dorsal spine. IMPRESSION: 1. Strandy basilar densities may reflect linear atelectasis however underlying infiltrates are not ex cluded.
== END 2017-09-30 16:10 | DRG 871 ==
LOC: 5MS5E 19:45
PROVIDERS: ADMIT Internal Medicine; ATTEND Internal Medicine
DX: A41.9 Sepsis, unspecified organism (principal); J69.0 Pneumonitis due to inhalation of food and vomit; G92 Toxic encephalopathy; N17.9 Acute kidney failure, unspecified; E87.1 Hypo-osmolality and hyponatremia; N39.0 Urinary tract infection, site not specified; G20 Parkinson's disease; F02.80 Dementia in other diseases classified elsewhere, unspecified severity, without behavioral disturbance, psychotic disturbance, mood disturbance, and anxiety; E78.5 Hyperlipidemia, unspecified; E86.0 Dehydration; F20.9 Schizophrenia, unspecified; F31.9 Bipolar disorder, unspecified; F41.0 Panic disorder [episodic paroxysmal anxiety]; F79 Unspecified intellectual disabilities; G47.30 Sleep apnea, unspecified; I12.9 Hypertensive chronic kidney disease with stage 1 through stage 4 chronic kidney disease, or unspecified chronic kidney disease; I25.10 Atherosclerotic heart disease of native coronary artery without angina pectoris; K21.9 Gastro-esophageal reflux disease without esophagitis; N18.2 Chronic kidney disease, stage 2 (mild); N40.0 Benign prostatic hyperplasia without lower urinary tract symptoms; Z79.82 Long term (current) use of aspirin; Z79.899 Other long term (current) drug therapy; Z87.891 Personal history of nicotine dependence; Z98.42 Cataract extraction status, left eye
CPT/HCPCS: 71045; 71046; 80048; 80164; 81001; 82550; 83036; 84439; 84443; 85025; 85027; 87040; 87086; 87502